=== PATIENT | male | born 1955 | race Caucasian/White ===

== ENCOUNTER 2023-09-07 07:55 | Emergency (ER) | payer BC, MEDICARE, OTHER ==
[2023-09-07 08:22] LABS: BASOPHILS ABSOLUTE AUTO 0.02 10^3/uL (0.00-0.10); BASOPHILS PERCENT AUTO 0.3 % (0.0-1.0); EOSINOPHILS ABSOLUTE AUTO 0.24 10^3/uL (0.10-0.30); EOSINOPHILS PERCENT AUTO 3.4 % (1.0-3.0); HEMATOCRIT 44.2 % (40.0-52.0); HEMOGLOBIN 14.7 g/dL (13.0-17.0); IMMATURE GRAN ABSOLUTE AUTO 0.01 10^3/uL (0.00-0.50); IMMATURE GRAN PERCENT AUTO 0.1 % (0.0-5.0); LYMPHOCYTES PERCENT AUTO 19.9 % (20.0-40.0); MEAN CORPUSCULAR HEMOGLOBIN 29.9 pg (27.0-31.0); MEAN CORPUSCULAR HGB CONC 33.3 g/dL (32.0-36.0); MEAN PLATELET VOLUME 10.1 fL (7.4-10.4); MONOCYTES ABSOLUTE AUTO 0.54 10^3/uL (0.10-0.80); MONOCYTES PERCENT AUTO 7.7 % (2.0-8.0); NEUTROPHILS ABSOLUTE AUTO 4.83 10^3/uL (2.50-7.00); NEUTROPHILS PERCENT AUTO 68.6 % (50.0-70.0); PLATELET COUNT,PLT 133 10^3/uL (150-400); RED BLOOD CELL COUNT 4.91 10^6/uL (4.50-6.00); RED CELL DISTRIBUTION WIDTH 13.1 % (11.5-14.5); WHITE BLOOD CELL COUNT,WBC 7.04 10^3/uL (5.00-10.00)
[2023-09-07 08:41] LABS: ANION GAP 11.4 mmol/L (5-15); C-REACTIVE PROTEIN 1.18 mg/dL (0.00-0.50); CALCIUM 8.8 mg/dL (8.7-10.3); CREATININE 0.94 mg/dL (0.51-1.17); EST CRCL DRUG DOSING (CG) 83.7 mL/min; POTASSIUM,K 4.4 mmol/L (3.5-5.1)
[2023-09-07] MEDS: Iopamidol 755 Mg/ML 100 ML Bottle IV ONE (09:07)
[2023-09-07] MEDS: Sodium Chloride 0.9% 50 ML IV SCH (09:07)
[2023-09-07] MEDS: Sulfamethoxazole/Trimethoprim 800-160 MG Tab PO ONE (10:11)
[2023-09-07] MEDS: cefTRIAXone 2 GM Vial IVPUSH ONE (10:13)
== END 2023-09-07 12:27 ==
LOC: KA.ED 07:55
DX: L02.01 Cutaneous abscess of face (principal)
CPT/HCPCS: 36415; 70487; 80048; 85025; 86140; 96374; 99284; 99284-25; A9270-GY; J0696; J3490; Q9967

== ENCOUNTER 2024-08-08 11:43 | Emergency (ER) | payer MEDICARE ==
[2024-08-08 12:24] LABS: BASOPHILS ABSOLUTE AUTO 0.03 10^3/uL (0.00-0.10); BASOPHILS PERCENT AUTO 0.5 % (0.0-1.0); EOSINOPHILS ABSOLUTE AUTO 0.12 10^3/uL (0.10-0.30); EOSINOPHILS PERCENT AUTO 2.2 % (1.0-3.0); HEMATOCRIT 42.4 % (40.0-52.0); IMMATURE GRAN ABSOLUTE AUTO 0.04 10^3/uL (0.00-0.04); IMMATURE GRAN PERCENT AUTO 0.7 % (0.0-0.4); LYMPHOCYTES ABSOLUTE AUTO 1.03 10^3/uL (1.00-4.00); LYMPHOCYTES PERCENT AUTO 18.7 % (20.0-40.0); MEAN CORPUSCULAR HEMOGLOBIN 28.4 pg (27.0-31.0); MEAN PLATELET VOLUME 9.8 fL (7.4-10.4); MONOCYTES PERCENT AUTO 7.3 % (2.0-8.0); NEUTROPHILS ABSOLUTE AUTO 3.89 10^3/uL (2.50-7.00); NEUTROPHILS PERCENT AUTO 70.6 % (50.0-70.0); PLATELET COUNT,PLT 125 10^3/uL (150-400); RED BLOOD CELL COUNT 4.93 10^6/uL (4.50-6.00); WHITE BLOOD CELL COUNT,WBC 5.51 10^3/uL (5.00-10.00)
[2024-08-08 12:40] LABS: APPEARANCE,URINE CLEAR (CLEAR); BILIRUBIN,URINE NEGATIVE (NEGATIVE); COLOR,URINE YELLOW (YELLOW); GLUCOSE,URINE NEGATIVE (NEGATIVE); KETONES,URINE NEGATIVE (NEGATIVE); LEUKOCYTE ESTERASE,URINE NEGATIVE (NEGATIVE); NITRITE,URINE NEGATIVE (NEGATIVE); OCCULT BLOOD,URINE TRACE-LYSED (NEGATIVE); PROTEIN,URINE NEGATIVE (NEGATIVE); UROBILINOGEN,URINE 0.2 E.U./dL (0.2-1.0)
[2024-08-08 12:41] LABS: BACTERIA,URINE OCCASIONAL /HPF (NONE TO FEW); EPITHELIAL CELLS,URINE RARE /LPF; RBC,URINE 0-5 /HPF (0-5); WBC,URINE 0-5 /HPF (0-5)
[2024-08-08 12:41] LABS: ALBUMIN 3.85 g/dL (3.40-5.00); ANION GAP 13.2 mmol/L (5-15); BILIRUBIN TOTAL 0.4 mg/dL (0.2-1.0); CALCIUM 9.3 mg/dL (8.7-10.3); CARBON DIOXIDE,CO2 29.1 mmol/L (21.0-32.0); CREATININE 0.76 mg/dL (0.51-1.17); EST CRCL DRUG DOSING (CG) 106.59 mL/min; POTASSIUM,K 4.3 mmol/L (3.5-5.1); PROTEIN TOTAL,TP 7.3 g/dL (6.4-8.2)
[2024-08-08] MEDS: Labetalol 100 MG/20 ML MDV IVPUSH ONE (12:54)
== END 2024-08-08 13:55 | disposition home or self-care (01) ==
LOC: KA.ED 11:43
DX: K21.00 Gastro-esophageal reflux disease with esophagitis, without bleeding (principal); K29.60 Other gastritis without bleeding; I11.9 Hypertensive heart disease without heart failure; R60.9 Edema, unspecified; Z79.01 Long term (current) use of anticoagulants; Z79.899 Other long term (current) drug therapy; Z79.51 Long term (current) use of inhaled steroids
CPT/HCPCS: 36415; 71045; 80053; 81001; 83880; 84484; 85025; 96374; 99285; J1920